=== PATIENT | female | born 1970 | race Caucasian/White ===

== ENCOUNTER 2017-12-01 19:49 | Emergency (ER) | payer SELFPAY ==
--- NOTE | 2017-12-01 21:11 | ER ---
Nurse's Notes [facility] Name: Elzbieta Melvin Age: 47 yrs Sex: Female : 1970 Arrival Date: 12/01/2017 Time: 19:51 Bed Waiting Private MD: Devan Jeffries R Diagnosis: Presentation: 12/01 20:03 Presenting complaint: Patient states: Pt reports pain in hips and LUCAS leg swelling for tl2 2 days. Reports pain in hips when walking. Pt states she has an appt with PCP for hip pain on Wednesday. Transition of care: patient was not received from another setting of care. Onset of symptoms was November 29, 2017. Risk Assessment: Do you want to hurt yourself or someone else? Patient reports no desire to harm self or others. Initial Sepsis Screen: Does the patient meet any 2 criteria? No. Patient's initial sepsis screen is negative. Does the patient have a suspected source of infection? No. Patient's initial sepsis screen is negative. Care prior to arrival: None. 20:03 Method Of Arrival: Ambulatory tl2 20:03 Acuity: VICENTA 4 tl2 Triage Assessment: 20:06 General: Appears in no apparent distress. uncomfortable, Behavior is calm, cooperative, tl2 appropriate for age. Pain: Complains of pain in right leg and left leg. 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 - Social history:: Smoking status: Patient uses tobacco products, smokes one pack cigarettes per day. - Ebola Screening: : No symptoms or risks identified at this time. Vital Signs: 20:06 BP 121 / 59; Pulse 87; Resp 18; Temp 98(O); Pulse Ox 98% on R/A; Weight 104.33 kg; tl2 Height 5 ft. 6 in. (167.64 cm); Pain 8/10; 20:06 Body Mass Index 37.12 (104.33 kg, 167.64 cm) tl2 ED Course: 19:51 Patient arrived in ED. am2 19:51 Devan Jeffries MD is Private Physician. am2 20:05 Triage completed. tl2 20:06 Arm band placed on right wrist. tl2 Administered Medications: No medications were administered Outcome: 21:11 Patient left the ED. tl2 Signatures: Maria Elena Douglass RN RN tl2 Ronna Acosta am2
== END 2017-12-01 21:11 | disposition left against medical advice (07) ==
LOC: ER 19:49
DX: Z53.21 Procedure and treatment not carried out due to patient leaving prior to being seen by health care provider (principal)
CPT/HCPCS: 99281

== ENCOUNTER 2018-05-20 17:09 | Emergency (ER) | payer SELFPAY ==
[2018-05-20] MEDS ORDERED: DIPHENHYDRAMINE 25 MG TAB/CAP ONE (18:22)
[2018-05-20] MEDS ORDERED: NA CHLORIDE 0.9% 250 ML ONE (18:22)
[2018-05-20] MEDS ORDERED: METOCLOPRAMIDE 10 MG/2mL INJ ONE (18:22)
--- NOTE | 2018-05-20 18:33 | RAD REPORT ---
EXAM DESCRIPTION: CT - Head Brain Wo Cont - 05/20/2018 6:24 pm CLINICAL HISTORY: Headache COMPARISON: 2016 TECHNIQUE: Computed axial tomography of the head was obtained. IV contrast was not requested. All CT scans are performed using dose optimization technique as appropriate and may include automated exposure control or mA/KV adjustment according to patient size. FINDINGS: An intracranial bleed is not seen . The ventricles are normal in caliber. No extra-axial fluid collection is noted. Fluid within the sinuses/ mastoids is not seen. IMPRESSION: No acute intracranial abnormality is seen. If patient's symptoms persist MRI of the bra in would be recommended.
[2018-05-20 18:54] LABS: Absolute Lymphocytes (CBC) 3.6 K/uL (0.7-4.9); Absolute Monocytes 0.5 K/uL (0.1-1.3); Absolute Neutrophil 5.1 K/uL (1.8-8.0); Basophils % 0.8 % (0-1.3); Eosinophils % 1.7 % (0-4.4); Hematocrit 38.8 % (36.0-45.0); Lymphocytes % 37.8 % (15.3-44.8); MCH 30.3 pg (27.0-35.0); MPV 8.1 fL (7.6-11.3); Monocytes % 5.6 % (3.3-12.3); RBC Red Blood Cell Count 4.41 M/uL (3.86-4.86)
[2018-05-20 19:12] LABS: ALT/SGPT 38 U/L (12-78); AST/SGOT 19 U/L (15-37); Albumin 3.8 g/dL (3.4-5.0); Alkaline Phosphatase 96 U/L (45-117); BUN Blood Urea Nitrogen 11 mg/dL (7-18); Bicarbonate 27 mmol/L (21-32); Bilirubin Total 0.3 mg/dL (0.2-1.0); Glucose Level 114 mg/dL (74-106); Protein, Total 7.6 g/dL (6.4-8.2); Sodium Level 140 mmol/L (136-145)
--- NOTE | 2018-05-20 19:14 | EDPHYS ---
Physician Documentation [facility] Name: Elzbieta Melvin Age: 47 yrs Sex: Female : 1970 Arrival Date: 05/20/2018 Time: 17:12 Bed 19 Private MD: ED Physician Makayla Fuller HPI: 05/20 18:08 This 47 yrs old Female presents to ER via Ambulatory with complaints of jmm Headache. 18:08 The patient complains of pain to the left side of the back of head and right side of jmm the back of head and right parietal area and left parietal area. The patient describes the headache as aching. Onset: The symptoms/episode began/occurred gradually. This is a 47 year old female that presents to the ed with headache for 3 days previous to similar headaches she has experienced since surgery for Chiari malformation in 2011. Patient states she has had blurred vision beginning today. Patient states needing LP every 6 months to help aleviate this. Patient admits to no taps in over a year. At 1600 the patient developed a nose bleed which is now resolved. . 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 - Social history:: Smoking status: Patient uses tobacco products, smokes one pack cigarettes per day. - Ebola Screening: : Patient denies travel to an Ebola-affected area in the 21 days before illness onset. ROS: 18:08 Constitutional: Negative for fever, chills, and weight loss. jmm 18:08 Neck: Negative for injury, pain, and swelling, Cardiovascular: Negative for chest pain, palpitations, and edema, Respiratory: Negative for shortness of breath, cough, wheezing, and pleuritic chest pain. 18:08 Eyes: Positive for blurry vision. 18:08 Neuro: Positive for headache. 18:08 All other systems are negative. Exam: 18:08 Constitutional: This is a well developed, well nourished patient who is awake, alert, jmm and in no acute distress. Head/Face: atraumatic. 18:08 ENT: Moist Mucus Membranes Neck: Trachea midline, Supple Chest/axilla: Normal chest wall appearance and motion. Cardiovascular: Regular rate and rhythm. No edema appreciated Respiratory: Normal respirations, no respiratory distress appreciated Abdomen/GI: Non distended, soft Back: Normal ROM Skin: General appearance color normal MS/ Extremity: Moves all extremities, no obvious deformities appreciated, no edema noted to the lower extremities 18:08 Eyes: Extraocular movements: intact throughout. 18:08 Neuro: Orientation: is normal, Mentation: is normal, Memory: is normal, Cerebellar function: normal finger to nose testing, Motor: is normal. 18:08 Psych: Behavior/mood is pleasant, cooperative. Vital Signs: 17:38 BP 160 / 79; Pulse 88; Resp 18; Temp 97.6; Pulse Ox 98% on R/A; Weight 106.14 kg (R); aj1 Height 5 ft. 6 in. (167.64 cm) (R); Pain 8/10; 19:15 BP 124 / 65; Pulse 78; Resp 18 S; Temp 98(O); Pulse Ox 97% on R/A; cc3 17:38 Body Mass Index 37.77 (106.14 kg, 167.64 cm) [facility] MDM: 18:08 Patient medically screened. [facility] 18:08 Data reviewed: vital signs, nurses notes. [facility] 19:13 Data reviewed: lab test result(s), radiologic studies, CT scan. Counseling: I had a [facility] detailed discussion with the patient and/or guardian regarding: the historical points, exam findings, and any diagnostic results supporting the discharge/admit diagnosis, radiology results, the need for outpatient follow up, to return to the emergency department if symptoms worsen or persist or if there are any questions or concerns that arise at home. 19:15 Refusal of service: The patient/guardian displays adequate decision making capability [facility] and despite a detailed discussion of alternatives, benefits, risks, and consequences refuses: Lumbar Puncture procedure. 19:15 ED course: Patient states headache is relieved in the ED after administration of jmm Reglan. Patient refuses LP and is aware this may lead to a worsening condition due to concerns for increase in intracranial pressure. Patient states she will follow up and have this performed outpatient. Patient advised to return to the ED if symptoms return or if vision worsens. Patient understood and agrees with the plan of care. . 05/20 18:10 Order name: CBC with Diff; Complete Time: 19:15 [facility] 05/20 18:10 Order name: CMP; Complete Time: 19:15 [facility] 05/20 18:08 Order name: CT Head Brain wo Cont; Complete Time: 18:40 [facility] 05/20 18:10 Order name: Saline Lock; Complete Time: 18:46 [facility] Administered Medications: 18:20 Not Given (Other Intervention Used): diphenhydrAMINE 12.5 mg IVP once em 18:46 Drug: NS 0.9% 250 ml Route: IV; Rate: bolus; Site: right antecubital; em 19:04 Follow up: IV Status: Completed infusion; IV Intake: 250ml em 18:46 Drug: Benadryl 25 mg Route: PO; em 19:05 Follow up: Response: No adverse reaction em 18:47 Drug: Reglan 10 mg Route: IVP; Site: right antecubital; ss 19:05 Follow up: Response: No adverse reaction em Disposition: 05/20/18 19:14 Discharged to Home. Impression: acute headache. - Condition is Stable. - Discharge Instructions: General Headache Without Cause. - Medication Reconciliation Form, Thank You Letter, Antibiotic Education, Prescription Opioid Use form. - Follow up: Orlando Be MD; When: 2 - 3 days; Reason: Recheck today's complaints, Continuance of care, Re-evaluation by your physician. - Notes: Please return to the Emergency Department if you develop increased headache or changes in your vision. Addendum: 05/24/2018 17:25 Co-signature as Attending Physician, Makayla Fuller MD. m a2 Signatures: Dispatcher [employer] Latonya Betancourt RN RN aj1 Jose Angel Bar PA PA Al Angeles, SOLUTIONS SPECIALIST SOLUTIONS SPECIALIST em Princess Denis RN RN ss Alzahri, Mohammad, MD MD ma2 Julia Mora cc3 Corrections: (The following items were deleted from the chart) 05/20 19:15 18:41 LP Consents ordered. damaso petit 19:16 18:41 LP Setup ordered. damaso petit 19:27 19:14 05/20/2018 19:14 Discharged to Home. Impression: acute headache. Condition is cc3 Stable. Forms are Medication Reconciliation Form, Thank You Letter, Antibiotic Education, Prescription Opioid Use. Follow up: Orlando Be; When: 2 - 3 days; Reason: Recheck today's complaints, Continuance of care, Re-evaluation by your physician. damaso
--- NOTE | 2018-05-20 19:14 | ER ---
Nurse's Notes [facility] Name: Elzbieta Melvin Age: 47 yrs Sex: Female : 1970 Arrival Date: 05/20/2018 Time: 17:12 Bed 19 Private MD: Diagnosis: acute headache Presentation: 05/20 17:33 Presenting complaint: Patient states: Headache, nose bleed since 1600 today. States aj1 that she regularly has headaches because of her Chiari malformation, but today's is worse. States that she is concerned because she has a aneurysm in the right side of her brain that she hasn't had checked recently. Reports feeling "spacey" for the past few days. Transition of care: patient was not received from another setting of care. Onset of symptoms was May 20, 2018 at 16:00. Risk Assessment: Do you want to hurt yourself or someone else? Patient reports no desire to harm self or others. Initial Sepsis Screen: Does the patient meet any 2 criteria? HR > 90 bpm. No. Patient's initial sepsis screen is negative. Does the patient have a suspected source of infection? No. Patient's initial sepsis screen is negative. Care prior to arrival: None. 17:33 Method Of Arrival: Ambulatory aj1 17:33 Acuity: VICENTA 3 aj1 Triage Assessment: 17:38 Headache History: The patient has had previous headaches and this one is more severe aj1 than previous episodes. General: Appears in no apparent distress. uncomfortable, Behavior is calm, cooperative, appropriate for age. Pain: Complains of pain in left parietal area and right parietal area Pain currently is 8 out of 10 on a pain scale. Pain began 2 hours ago. Also complains of "everything looks foggy and my ears feel full". Neuro: Level of Consciousness is awake, alert, obeys commands. Cardiovascular: Patient's skin is warm and dry. Respiratory: Airway is patent Respiratory effort is even, unlabored, Respiratory pattern is regular, symmetrical. 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 - Social history:: Smoking status: Patient uses tobacco products, smokes one pack cigarettes per day. - Ebola Screening: : Patient denies travel to an Ebola-affected area in the 21 days before illness onset. Screenin:40 Abuse screen: Denies threats or abuse. Nutritional screening: No deficits noted. em Tuberculosis screening: No symptoms or risk factors identified. Fall Risk None identified. Assessment: 18:40 General: Appears uncomfortable, Behavior is calm, cooperative. Pain: Complains of pain em in scalp and right parietal area and left parietal area Pain currently is 8 out of 10 on a pain scale. Neuro: Level of Consciousness is awake, alert, obeys commands, Oriented to person, place, time, situation, Reports blurred vision dizziness, since 1600 headache. Cardiovascular: Capillary refill < 3 seconds Patient's skin is warm and dry. Respiratory: Airway is patent Respiratory effort is even, unlabored, Respiratory pattern is regular, symmetrical. GI: Abdomen is round non-distended, Patient currently denies nausea. : No signs and/or symptoms were reported regarding the genitourinary system. EENT: No signs and/or symptoms were reported regarding the EENT system. Derm: Skin is intact, Skin is pink, warm \\T\\ dry. Musculoskeletal: Capillary refill < 3 seconds, Range of motion: intact in all extremities. 18:45 General: The previous assessment is accurate, call light remains within reach. . ss 19:15 Reassessment: Patient appears in no apparent distress at this time. Patient and/or cc3 family updated on plan of care and expected duration. Pain level reassessed. Patient is alert, oriented x 3, equal unlabored respirations, skin warm/dry/pink. Received this female patient from morning shift [facility] as a case of headache for LP still for consent. With IV cannula gauge 20 at the right ACV saline locked. 19:25 Reassessment: Patient refused for lumbar puncture procedure as VITCORIANO Bar explained the cc3 need to do such but still patient refused. VICTORIANO Bar then discharged the patient home, no prescription given and advised for follow up. IV cannula removed and patient left ER vitally stable and ambulatory with her family. Vital Signs: 17:38 BP 160 / 79; Pulse 88; Resp 18; Temp 97.6; Pulse Ox 98% on R/A; Weight 106.14 kg (R); aj1 Height 5 ft. 6 in. (167.64 cm) (R); Pain 8/10; 19:15 BP 124 / 65; Pulse 78; Resp 18 S; Temp 98(O); Pulse Ox 97% on R/A; cc3 17:38 Body Mass Index 37.77 (106.14 kg, 167.64 cm) aj1 ED Course: 17:12 Patient arrived in ED. tw3 17:37 Triage completed. aj1 17:38 Arm band placed on Patient placed in an exam room. aj1 17:49 Al Hernandez LVN is Primary Nurse. em 17:57 Jose Angel Bar PA is PHCP. jmm 17:57 Makayla Fuller MD is Attending Physician. jmm 18:[address] jg6 18:24 CT Head Brain wo Cont In Process Unspecified. EDMS 18:24 CT completed. Patient tolerated procedure well. Patient moved back from CT. nj 18:40 Patient has correct armband on for positive identification. Fall risk band placed. Call em light in reach. Adult w/ patient. 18:40 Initial lab(s) drawn, by me, sent to lab. Inserted saline lock: 20 gauge in right em antecubital area, using aseptic technique. Blood collected. 19:14 Orlando Be MD is Referral Physician. jm 19:25 No provider procedures requiring assistance completed. IV discontinued, intact, cc3 bleeding controlled, No redness/swelling at site. Pressure dressing applied. Administered Medications: 18:20 Not Given (Other Intervention Used): diphenhydrAMINE 12.5 mg IVP once em 18:46 Drug: NS 0.9% 250 ml Route: IV; Rate: bolus; Site: right antecubital; em 19:04 Follow up: IV Status: Completed infusion; IV Intake: 250ml em 18:46 Drug: Benadryl 25 mg Route: PO; em 19:05 Follow up: Response: No adverse reaction em 18:47 Drug: Reglan 10 mg Route: IVP; Site: right antecubital; ss 19:05 Follow up: Response: No adverse reaction em Intake: 19:04 IV: 250ml; Total: 250ml. em Outcome: 19:14 Discharge ordered by . damaso 19:25 Discharged to home ambulatory, with family. cc3 19:25 Condition: stable 19:25 Discharge instructions given to patient, family, Instructed on discharge instructions, follow up and referral plans. Demonstrated understanding of instructions, follow-up care. 19:27 Patient left the ED. cc3 Signatures: Dispatcher [employer] Latonya Betancourt, MEME RN aj1 Jose Angel Bar PA PA Al Angeles, SHIPPER/RECEIVER SHIPPER/RECEIVER em Princess Denis RN RN Cesar Marcus Tia 3 Julia Mora cc3 Kari Carter
== END 2018-05-20 19:27 | disposition home or self-care (01) ==
LOC: ER 17:09
DX: R51 Headache (principal); F17.210 Nicotine dependence, cigarettes, uncomplicated; M19.90 Unspecified osteoarthritis, unspecified site; Z79.899 Other long term (current) drug therapy
CPT/HCPCS: 36415; 70450; 80053; 85025; 96361; 96365; 96374; 96375; 99284; J2765

== ENCOUNTER 2020-06-05 13:31 | Emergency (ER) | payer OTHER, SELFPAY ==
--- OUTSIDE RECORDS SUMMARY | 2020-06-05 13:35 | XMS REPORT | Continuity of Care Document ---
:1970 Author Organization [facility] t Address [address] [place] [address] Care Team Providers Name Role Phone Rodney CASH ACCOUNTING CLERK Attending Clinician Mica RN, C Attending Clinician Unavailable Pob1, Care Clinic Attending Clinician Unavailable JONES Attending Clinician Unavailable Problems Condition Condition Condition Status Onset Resolution Last Treating Co mments Source Name Details Category Date Date Treatment Clinician Date Dysfunctio Dysfunctio Problem Active U nivers nal nal ity of uterine uterine [place] bleeding bleeding Physic i ans Normal Normal Problem Active Univers routine routine ity of physical physical [place] examinatio examinatio Ph ysici n n ans Excessive Excessive Problem Active Uni vers and and ity of frequent frequent [place] menstruati menstruati Ph ysici on with on with ans regular regular cycle cycle Subacute Subacute Problem Active Unive rs and and ity of chronic chronic [place] vaginitis vaginitis Phys ici ans Arthritis Arthritis Problem Active Uni vers ity of [place] Physici ans Gastritis Gastritis Problem Active Uni vers ity [facility] [place] Physici ans Migraine Migraine Problem Active Unive rs headache headache ity of [place] [facility] ans Carpal Carpal Problem Active Univers tunnel tunnel ity of syndrome syndrome [place] Physici ans Thyroid Thyroid Problem Active Univers nodule nodule it[facility] of [place] [facility] Chronic Chronic Problem Active Univers GERD GERD ity of [place] [facility] ans Dysfunctio Problem Active 2012-07-08 M emoria nal 02:00:52 l Uterine [place] Bleeding Dysfunctio nal Uterine Bleeding Active 3 [place] [facility] Menorrhagi Problem Active 2012-07-08 M emoria a 02:00:52 l Franco Menorrhagi a Active 07/08/2012 [facility] Bacterial Problem Active 2012-07-08 Me moria Vaginosis 02:00:52 l [place] Bacterial Vaginosis Active 3 [place] [facility] Allergies, Adverse Reactions, Alerts Allergy Allergy Status Severity Reaction(s) Onset Inactive Treating Comm ents Source Name Type Date Date Clinician No Known No Known Active Memori a Drug Drug l Allergie Allergie Jorje wing s s Social History Social Habit Start Date Stop Date Quantity Comments Source Social History 2012-07-08 2012-07-08 [facility] 02:00:52 02:00:52 Smoking Status Start Date Stop Date Source Current every day smoker [facility] Medications Ordered Filled Start Stop Current Ordering Indication Dosage Frequency Signature Comments Components Source Medication Medication Date Date Medication? Clinician (SIG) Name Name MetroNIDAZO Yes ; Start Mem oria LE 500 MG -03 Date: l Oral Tablet 06:00: 07/07/2012 Franco 00 ; End Date: (Active) Protonix 40 2011-07 Yes ; Start Mem oria MG Oral 08-31 Date: l Tablet 06:00: 06/30/2012 Hanna nn Delayed 00 (Active) Release Zofran 4 MG 2011-07 Yes ; Start Mem oria Oral Tablet 08-31 Date: l 06:00: 06/30/2012 Franco 00 (Active) Hydrocodone 2011-07 Yes ; Start Mem oria -Acetaminop 08-31 Date: l hen 10-325 06:00: 06/30/2012 H ermann MG Oral 00 (Active) Tablet Ambien CR 2011-07 Yes ; Start Memor ia 12.5 MG - Date: l Oral Tablet 06:00: 06/30/2012 [place] Extended 00 (Active) Release Lipitor 10 2011-07 Yes ; Start Nicolas hussain MG Oral - Date: l Tablet 06:00: 06/30/2012 Hanna nn 00 (Active) LaMICtal 2011-07 Yes ; Start Memori a Starter 25 08-31 Date: l (42)-100 06:00: 06/30/2012 Her ho (7) MG Oral 00 (Active) Kit Methotrexat Methotrexat Yes M.A. U nivers e e ity of (Anti-Rheum (Anti-Rheum [place] atic) 2.5 atic) 2.5 Physi ci MG TABS MG TABS ans Folic Acid Folic Acid Yes M.A. Uni vers 1 MG Oral 1 MG Oral ity o f Tablet Tablet [facility] [place] ans Vitamin D Vitamin D Yes M.A. Unive rs TABS TABS [facility]y of [place] Phys[facility] ans Omeprazole Omeprazole Yes M.A. Uni vers TBEC TBEC ity of [place] Physici ans predniSONE predniSONE Yes M.A. Uni vers 5 MG Oral 5 MG Oral ity o f Tablet Tablet [place] [facility] ans Vital Signs Vital Name Observation Time Observation Value Comments Source Height 2019-02-21 09:09:00 66 [in_us] [facility] Weight 2019-02-21 09:09:00 228 [lb_av] [facility] Body Mass Index 2019-02-21 09:09:00 36.8 kg/m2 [facility] Calculated Physicians Procedures Procedure Date / Time Performing Clinician Source Performed [place] Thyroid [id number] 2019-03-03 00:00:00 [facility] US Thyroid biopsy guided 2019-02-21 00:00:00 [facility] [place] [id number] Physicians History of Cholecystectomy [facility] History of Tubal Ligation [facility]icians History of Hysterectomy [facility] History of Knee surgery [facility] Plan of Care Planned Activity Planned Date Details Comments Source Future Scheduled Test 2012-07-08 02:00:52 Plan of Care [code [facility] = 35614-2] Encounters Start End Encounter Admission Attending Care Care Encounter Source Date/Time Date/Time Type Type Clinicians Facility Department ID 2019-04-05 Outpatient [id number] [facility] 2020-01-20 2020-01-20 CARMEN Joyner [id number] 00:00:00 00:00:00 Hailee [facility] [id number] [place] [id number] [place] [id number] nal [address] 2019-11-09 2019-11-09 Telephone Rodney [facility] [id number] 00:00:00 00:00:00 Hailee Hancock [id number] [place] [id number] Professio [phone] [address] 2019-10-07 2019-10-07 Telephone ISSAC Nino [id number] 00:00:00 00:00:00 Chiara NEGRON [id number] [facility] [id number] 2019-10-05 2019-10-05 [facility] [id number] 14:45:00 23:59:00 Encounter Hailee Hancock [id number] [place] [id number] [place] [id number] 2019-10-05 2019-10-05 Urgent Pob1, Acute [facility] [id number] 14:06:19 14:26:19 [facility] [id number] [place] [id number] Professio [phone] [place] [address] Office [address] [facility] 2019-10-05 2019-10-05 Telephone Pob1, Acute [facility] [id number] 00:00:00 00:00:00 [facility] [id number] [place] [id number] Professio [phone] [place] [address] Office Building [facility] 2019-03-09 2019-03-09 Outpatient MHSE MHSE [id number] MH 11:37:00 11:37:00 [facility] 2019-02-21 2019-02-21 Appointmen DELMY JONES Otorhinolar [id number] [facility] [place] [facility] 08:30:00 08:30:00 t; MARGIE JONES, yngology - i ty of Maria Antonia [facility] ans 2012-07-07 2012-07-07 Outpatient MHIE MHIE [id number] 20:01:09 20:00:52 Results Test Description Test Time Test Comments Results Result Sourc e Comments US Thyroid [id number] EXAM: US Universi ty of 5 THYROIDCLINICAL [place] 12:23:00 INDICATION: 48 years Phys icians old Female with - thyroid noduleCOMPARISON: NoneTECHNIQUE:Sonogr aphic evaluation of the thyroid gland is performed.FINDINGS:M EASUREMENTS:The right thyroid gland measures 5.4 x 1.5 x 1.6 cm. Mildly heterogeneousechotex ture. Normal color Doppler flow is visualized.The left thyroid gland measures 5.0 x 1.3 x 1.5 cm. Mildly heterogeneousechotex ture. Normal color Doppler flow is visualized.The thyroid isthmus measures 0.3 cm in thickness.NODULES:No dule #: 1- Size: 1.3 x 0.7 x 1.1 cm- Location: Superior right lobe- Composition: solid or almost completely solid: 2 points- Echogenicity: hypoechoic: 2 points- Shape: wider than tall: 0 points- Margin: smooth: 0 points- Echogenic foci?: none: 0 pointsTI-RADS Category: TR4: 4-6 points. Moderately suspicious. If >= 1cm follow upat 1,2,3 and 5 years. If >=1.5cm FNANodule #: 2- Size: 2.1 x 1.4 x 1.6 cm- Location: Inferior right lobe- Composition: mixed cystic/solid: 1 point- Echogenicity: hypoechoic: 2 points- Shape: wider than tall: 0 points- Margin: smooth: 0 points- Echogenic foci?: none: 0 pointsTI-RADS Category: TR3: 3 points. Mildly suspicious. If >= 1.5 cm follow up at1,3 and 5 years. If >=2.5 cm FNAOTHER:There is no adjacent jugular chain lymphadenopathy.IMPR ESSION:1. TI-RADS 3 and 4 nodules noted in the right thyroid lobe. Follow-up imagingis suggested in one year.SL: [id number]--Ekjt by: Ugo Post MDDictated Date/time: 03/10/19 08:31Electronically Signed by: Ugo Post MD 03/10/1908:35FINAL REPORT
--- OUTSIDE RECORDS SUMMARY | 2020-06-05 13:35 | XMS REPORT | Continuity of Care Document ---
:1970 Author Organization [facility] Care Team Providers Name Role Phone [facility] Unavailable Un available Problems Problem Status Onset Classification Date Comments Sourc e Date Reported Dysfunctional Active 07/08/2012 [facility] Uterine Bleeding Menorrhagia Active 07/08/2012 [facility] Bacterial Active 07/08/2012 [facility] Vaginosis Medications Medication Details Route Status Patient Ordering Order Source Instructions Provider Date MetroNIDAZOLE ; Start Active [facility] 500 MG Oral Date: 013 Physicians Tablet 07/07/2012 ; End Date: (Active) Protonix 40 MG ; Start Active [facility] Oral Tablet Date: 012 Physicians Delayed Release 06/30/2012 (Active) Zofran 4 MG Oral ; Start Active [facility] Tablet Date: 012 Physicians 06/30/2012 (Active) Hydrocodone-Acet ; Start Active [facility] aminophen 10-325 Date: 012 Physici ans MG Oral Tablet 06/30/2012 (Active) Ambien CR 12.5 ; Start Active [facility] MG Oral Tablet Date: 012 Physician s Extended Release 06/30/2012 (Active) Lipitor 10 MG ; Start Active [facility] Oral Tablet Date: 012 Physicians 06/30/2012 (Active) LaMICtal Starter ; Start Active [facility] 25 (42)-100 (7) Date: 012 Physicia ns MG Oral Kit 06/30/2012 (Active) Allergies, Adverse Reactions, Alerts Substance Category Reaction Severity Reaction Status Date Comments S ource type Reported No Known drug drug Active [facility] Drug allergy allergy Physicia ns Allergies Immunizations No Data Provided for This Section Results No Data Provided for This Section Pathology Reports No Data Provided for This Section Diagnostic Reports No Data Provided for This Section Consultation Notes No Data Provided for This Section Discharge Summaries No Data Provided for This Section History and Physicals No Data Provided for This Section Vital Signs No Data Provided for This Section Encounters Location Location Encounter Encounter Reason Attending ADM DC Stat us Source Details Type Number For Provider Date Date Visit AUDIT [id number] 07/07 07/08 [place] /2012 [facility]icians [facility], [id number] 07/14 07/08 [place] Provider: /2012 ISABEL Solomon, Status: Pen, Time: 9:00 AM Procedures No Data Provided for This Section Assessment and Plan No Data Provided for This Section Plan of Care Plan of Care Date Source Pap ThinPrep 06/30/2012 07/08/2012 [facility] Routine Social History Social History Date Source Current Smoker (305.1); 07/08/2012 [facility] (Active) Being A Social Drinker (Active) Current Every Day Smoker (305.1); (Active) Family History No Data Provided for This Section Advance Directives Order Name Results Value Date Source Advance Directives Advance Directives No Advance 07/08/2012 [facility] Directives available. Functional Status No Data Provided for This Section
[2020-06-05] MEDS ORDERED: DICYCLOMINE HCL 10 MG CAP ONE (16:40)
[2020-06-05] MEDS ORDERED: ONDANSETRON 4 MG/2 ML VIAL ONE (16:40)
[2020-06-05] MEDS ORDERED: NA CHLORIDE 0.9% 1,000 ML ONE (16:40)
[2020-06-05 16:57] LABS: Absolute Lymphocytes (CBC) 2.5 K/uL (0.7-4.9); Hematocrit 41.2 % (36.0-45.0); Lymphocytes % 26.5 % (15.3-44.8); MPV 8.1 fL (7.6-11.3); RBC Red Blood Cell Count 4.73 M/uL (3.86-4.86)
[2020-06-05 17:09] LABS: ALT/SGPT 26 U/L (12-78); AST/SGOT 18 U/L (15-37); Albumin 3.6 g/dL (3.4-5.0); Alkaline Phosphatase 114 U/L (45-117); BUN Blood Urea Nitrogen 9 mg/dL (7-18); Bicarbonate 30 mmol/L (21-32); Bilirubin Direct 0.1 mg/dL (0-0.2); Bilirubin Total 0.3 mg/dL (0.2-1.0); Glucose Level 112 mg/dL (74-106); Lipase 74 U/L (73-393); Potassium 3.9 mmol/L (3.5-5.1); Protein, Total 7.4 g/dL (6.4-8.2); Sodium Level 138 mmol/L (136-145)
--- NOTE | 2020-06-05 17:40 | RAD REPORT ---
EXAM DESCRIPTION: CT - Abdomen Pelvis W Contrast - 06/05/2020 5:30 pm CLINICAL HISTORY: ABD PAIN COMPARISON: No comparisons TECHNIQUE: Biphasic, helical CT imaging of the abdomen and pelvis was performed following 100 ml non -ionic IV contrast. No oral contrast. All CT scans are performed using dose optimization technique as appropriate and may include automated exposure control or mA/KV adjustment according to patient size. FINDINGS: No suspicious findings in the lung bases. The liver, spleen, and pancreas show no suspicious findings. Liver has a mild diffuse fatty infiltrat ion pattern. Gallbladder is absent. Biliary tree within normal limits. Symmetric renal function is seen with no hydronephrosis or suspicious renal mass. No pyelonephritis o r acute parenchymal process. No bladder abnormalities. No adrenal abnormalities. No dilated bowel loops or bowel wall thickening. Patient is a normal variant fatty ileocecal valve. N o suspicion for appendicitis. No active GI process identifiable. No free air, free fluid or inflammat ory stranding. No hernia, mass or bulky lymphadenopathy. Uterus is absent. Ovaries are absent or atr ophic. No adnexal mass. Multiple phleboliths seen. No suspicious bony findings. IMPRESSION: Contrast enhanced CT abdomen and pelvis showing no acute or emergent finding.
--- NOTE | 2020-06-05 18:23 | ER ---
Nurse's Notes [facility] Name: Elzbieta Melvin Age: 49 yrs Sex: Female : 1970 Arrival Date: 06/05/2020 Time: 13:32 Bed 8 Private MD: Diagnosis: Nausea and vomiting;Diarrhea, unspecified Presentation: 06/05 14:18 Chief complaint: Patient states: I've been having a lot of vomiting, diarrhea, stomach ca1 cramps for about a month but has gotten worse in the past week. Now I have been throwing up and having diarrhea at the same time. My diarrhea is now mucous and smells like C. Diff, I am also having a lot of headache like my head is going to explode. Reports fever off and on x 1 week, Htemp 102F. Coronavirus screen: Client denies travel out of the [place] in the last 14 days. diarrhea, nausea, vomiting. Client presents with at least one sign or symptom that may indicate coronavirus-19. Standard/surgical mask placed on the client. Provider contacted for isolation considerations. Ebola Screen: Patient negative for fever greater than or equal to 101.5 degrees Fahrenheit, and additional compatible Ebola Virus Disease symptoms Patient denies exposure to infectious person. Patient denies travel to an Ebola-affected area in the 21 days before illness onset. No symptoms or risks identified at this time. Initial Sepsis Screen: Does the patient meet any 2 criteria? No. Patient's initial sepsis screen is negative. Does the patient have a suspected source of infection? No. Patient's initial sepsis screen is negative. Risk Assessment: Do you want to hurt yourself or someone else? Patient reports no desire to harm self or others. Onset of symptoms was June 05, 2020. 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 - Social history:: Smoking status: Patient reports the use of cigarette tobacco products, smokes one pack cigarettes per day. Screenin:30 Abuse screen: Denies threats or abuse. Nutritional screening: No deficits noted. em Tuberculosis screening: No symptoms or risk factors identified. Fall Risk None identified. Assessment: 16:40 General: Appears in no apparent distress. comfortable, Behavior is calm, cooperative, em appropriate for age, Reports fever for 12-24 hours. Pain: Complains of pain in abdomen and head Pain currently is 10 out of 10 on a pain scale. Neuro: Level of Consciousness is awake, alert, obeys commands, Oriented to person, place, time, situation, Appropriate for age Reports headache. Cardiovascular: Capillary refill < 3 seconds Patient's skin is warm and dry. Respiratory: Airway is patent Respiratory effort is even, unlabored, Respiratory pattern is regular, symmetrical. GI: Reports diarrhea, nausea, vomiting. Derm: Skin is intact, is healthy with good turgor, Skin is pink, warm \T\ dry. Musculoskeletal: Capillary refill < 3 seconds, Range of motion: intact in all extremities. 17:40 Reassessment: Patient appears in no apparent distress at this time. Patient and/or em family updated on plan of care and expected duration. Pain level reassessed. Patient is alert, oriented x 3, equal unlabored respirations, skin warm/dry/pink. 18:41 Reassessment: Patient appears in no apparent distress at this time. Patient and/or em family updated on plan of care and expected duration. Pain level reassessed. Patient is alert, oriented x 3, equal unlabored respirations, skin warm/dry/pink. pt refused covid swab, provider notified. Vital Signs: 14:18 BP 138 / 82; Pulse 98; Resp 18 S; Temp 97(TE); Pulse Ox 100% on R/A; Weight 96.62 kg ca1 (R); Height 5 ft. 7 in. (170.18 cm) (R); Pain 10/10; 16:39 BP 126 / 70; Pulse 81; Resp 18; Pulse Ox 99% on R/A; em 18:00 BP 103 / 54; Pulse 80; Resp 16; Pulse Ox 99% on R/A; em 14:18 Body Mass Index 33.36 (96.62 kg, 170.18 cm) ca1 ED Course: 13:32 Patient arrived in ED. as 14:20 Tonya Cordero FNP-C is [facility]. kb 14:20 Miguelangel Montes MD is Attending Physician. kb 14:21 Triage completed. ca1 14:23 Arm band placed on right wrist. ca1 15:25 Flu Sent. ca1 16:22 Al Hernandez, RN is Primary Nurse. em 16:30 Patient has correct armband on for positive identification. Bed in low position. Call em light in reach. Side rails up X2. Adult w/ patient. Pulse ox on. NIBP on. 16:40 Initial lab(s) drawn, by me, sent to lab. Inserted saline lock: 20 gauge in right em antecubital area, using aseptic technique. Blood collected. 17:30 CT Abd/Pelvis - IV Contrast Only In Process Unspecified. EDMS 18:40 No provider procedures requiring assistance completed. IV discontinued, intact, em bleeding controlled, No redness/swelling at site. Pressure dressing applied. Administered Medications: 16:40 Drug: NS 0.9% 1000 ml Route: IV; Rate: 1000 ml; Site: right antecubital; em 18:44 Follow up: IV Status: Completed infusion; IV Intake: 1000ml em 16:40 Drug: Zofran (Ondansetron) 4 mg Route: IVP; Site: right antecubital; em 17:00 Follow up: Response: No adverse reaction; Marked relief of symptoms; Nausea is decreasedem 17:01 Drug: Bentyl 20 mg Route: PO; em 18:47 Follow up: Response: No adverse reaction; Marked relief of symptoms; Pain is decreased em Intake: 18:44 IV: 1000ml; Total: 1000ml. em Outcome: 18:22 Discharge ordered by . kb 18:40 Discharged to home ambulatory. em 18:40 Condition: stable 18:40 Discharge instructions given to patient, Instructed on discharge instructions, follow up and referral plans. medication usage, Demonstrated understanding of instructions, follow-up care, medications, Prescriptions given X 2. 18:50 Patient left the ED. em Signatures: Dispatcher [employer] EDMS Tonya Cordero FNP-C FNP-Al Taylor, RN RN em Nicole Maciel as Padmini Ramos RN RN ca1
--- NOTE | 2020-06-05 18:23 | EDPHYS ---
Physician Documentation [facility] Name: Elzbieta Melvin Age: 49 yrs Sex: Female : 1970 Arrival Date: 06/05/2020 Time: 13:32 Bed 8 Private MD: ED Physician Miguelangel Montes HPI: 06/06 00:16 This 49 yrs old Female presents to ER via Ambulatory with complaints of kb Headache, Vomiting/Diarrhea, Fever, Decreased Appetite. 00:16 The patient presents to the emergency department with nausea, vomiting, diarrhea, kb abdominal pain. The patient has not experienced similar symptoms in the past. The patient has not recently seen a physician. 00:16 Onset: The symptoms/episode began/occurred last month, and became worse 1 week(s) ago. kb Possible causes: unknown. The symptoms are aggravated by nothing. The symptoms are alleviated by nothing. Associated signs and symptoms: Pertinent positives: abdominal pain, diarrhea, fever, nausea, vomiting. Severity of symptoms: At their worst the symptoms were moderate in the emergency department the symptoms are unchanged. [employer]: 06/05 14:23 LMP N/A - Hysterectomy ca1 Historical: - Allergies: 14:23 No Known Allergies; ca1 - PMHx: 14:23 Aneurysm; Arthritis; chiari malformation; gastric ulcers; ca1 - PSHx: 14:23 Hysterectomy; Cholecystectomy; ; head Surgery; ca1 - Immunization history:: Adult Immunizations up to date, Flu vaccine is up to date. - Social history:: Smoking status: Patient reports the use of cigarette tobacco products, smokes one pack cigarettes per day. ROS: 06/06 00:15 Cardiovascular: Negative for chest pain, palpitations, and edema, Respiratory: Negative kb for shortness of breath, cough, wheezing, and pleuritic chest pain, Back: Negative for injury and pain, MS/Extremity: Negative for injury and deformity, Skin: Negative for injury, rash, and discoloration. Constitutional: Positive for fever. Abdomen/GI: Positive for abdominal pain, nausea, vomiting, and diarrhea. Neuro: Positive for headache. Exam: 00:15 Constitutional: This is a well developed, well nourished patient who is awake, alert, kb and in no acute distress. Head/Face: Normocephalic, atraumatic. Chest/axilla: Normal chest wall appearance and motion. Nontender with no deformity. No lesions are appreciated. Cardiovascular: Regular rate and rhythm with a normal S1 and S2. No gallops, murmurs, or rubs. Normal PMI, no JVD. No pulse deficits. Respiratory: Lungs have equal breath sounds bilaterally, clear to auscultation and percussion. No rales, rhonchi or wheezes noted. No increased work of breathing, no retractions or nasal flaring. Abdomen/GI: Soft, non-tender, with normal bowel sounds. No distension or tympany. No guarding or rebound. No evidence of tenderness throughout. Skin: Warm, dry with normal turgor. Normal color with no rashes, no lesions, and no evidence of cellulitis. MS/ Extremity: Pulses equal, no cyanosis. Neurovascular intact. Full, normal range of motion. Neuro: Awake and alert, GCS 15, oriented to person, place, time, and situation. Cranial nerves II-XII grossly intact. Motor strength 5/5 in all extremities. Sensory grossly intact. Cerebellar exam normal. Normal gait. Vital Signs: 06/05 14:18 BP 138 / 82; Pulse 98; Resp 18 S; Temp 97(TE); Pulse Ox 100% on R/A; Weight 96.62 kg ca1 (R); Height 5 ft. 7 in. (170.18 cm) (R); Pain 10/10; 16:39 BP 126 / 70; Pulse 81; Resp 18; Pulse Ox 99% on R/A; em 18:00 BP 103 / 54; Pulse 80; Resp 16; Pulse Ox 99% on R/A; em 14:18 Body Mass Index 33.36 (96.62 kg, 170.18 cm) ca1 MDM: 16:11 Patient medically screened. kb 17:44 Data reviewed: vital signs, nurses notes. Data interpreted: Pulse oximetry: on room air kb is 100 %. Interpretation: normal. Counseling: I had a detailed discussion with the patient and/or guardian regarding: the historical points, exam findings, and any diagnostic results supporting the discharge/admit diagnosis, lab results, radiology results, the need for outpatient follow up, a family practitioner, to return to the emergency department if symptoms worsen or persist or if there are any questions or concerns that arise at home. 06/05 14:40 Order name: Glucose, Ancillary Testing; Complete Time: 14:43 EDMT 06/05 14:59 Order name: Flu; Complete Time: 16:28 kb 06/05 16:17 Order name: Basic Metabolic Panel; Complete Time: 17:14 kb 06/05 16:17 Order name: CBC with Diff; Complete Time: 17:14 kb 06/05 16:17 Order name: Hepatic Function; Complete Time: 17:14 kb 06/05 16:17 Order name: Lipase; Complete Time: 17:14 kb 06/05 16:17 Order name: IV Saline Lock; Complete Time: 16:42 kb 06/05 16:17 Order name: Labs collected and sent; Complete Time: 16:31 kb 06/05 17:14 Order name: CT Abd/Pelvis - IV Contrast Only; Complete Time: 17:44 kb Administered Medications: 16:40 Drug: NS 0.9% 1000 ml Route: IV; Rate: 1000 ml; Site: right antecubital; em 18:44 Follow up: IV Status: Completed infusion; IV Intake: 1000ml em 16:40 Drug: Zofran (Ondansetron) 4 mg Route: IVP; Site: right antecubital; em 17:00 Follow up: Response: No adverse reaction; Marked relief of symptoms; Nausea is decreasedem 17:01 Drug: Bentyl 20 mg Route: PO; em 18:47 Follow up: Response: No adverse reaction; Marked relief of symptoms; Pain is decreased em Disposition: 18:59 I agree with the assessment and plan of care. kdr Disposition: 06/05/20 18:22 Discharged to Home. Impression: Nausea and vomiting, Diarrhea, unspecified. - Condition is Stable. - Discharge Instructions: Viral Gastroenteritis, Adult, [id number]. - Prescriptions for Bentyl 20 mg Oral Tablet - take 1 tablet by ORAL route every 6 hours As needed; 20 tablet. Zofran 4 mg Oral Tablet - take 1 tablet by ORAL route every 6 hours As needed; 20 tablet. - Medication Reconciliation Form, Thank You Letter, Antibiotic Education, Prescription Opioid Use form. - Follow up: Emergency Department; When: As needed; Reason: Worsening of condition. Follow up: Private Physician; When: 2 - 3 days; Reason: Recheck today's complaints, Continuance of care, Re-evaluation by your physician. Signatures: Dispatcher [employer] EDMT Tonya Cordero FNP-C SPEECH AND LANGUAGE CLINICIAN-Ckb Miguelangel Montes MD MD [facility] Al Hernandez, RN RN em Padmini Ramos RN RN ca1 Corrections: (The following items were deleted from the chart) 18:35 16:18 Stool Culture+BA.LAB.BRZ ordered. [facility] 18:35 16:18 C.difficile [facility] Ag \T\ Toxin AB+LAB.BRZ ordered. [facility] 18:50 18:22 06/05/2020 18:22 Discharged to Home. Impression: Nausea and vomiting; Diarrhea, em unspecified. Condition is Stable. Forms are Medication Reconciliation Form, Thank You Letter, Antibiotic Education, Prescription Opioid Use. Follow up: Emergency Department; When: As needed; Reason: Worsening of condition. Follow up: Private Physician; When: 2 - 3 days; Reason: Recheck today's complaints, Continuance of care, Re-evaluation by your physician. kb
== END 2020-06-05 18:50 | disposition home or self-care (01) ==
LOC: ER 13:31
DX: R19.7 Diarrhea, unspecified (principal); F17.210 Nicotine dependence, cigarettes, uncomplicated
CPT/HCPCS: 96361; 85025; 80048; 36415; 82947; 80076; 83690; 87804 ×2; 74177; 96374; 99284; Q9967; J7030; J2405